=== PATIENT | male | born 1960 | race Caucasian/White ===

== ENCOUNTER 2020-12-23 08:19 | Emergency (ER) | payer MEDICARE ==
[~2020-12-23] VITALS: Ht 182.9 cm; Wt 86.2 kg
[2020-12-23] MEDS ORDERED: HYDROCODON-ACE1 EAC7 PO (10:00)
[2020-12-23 10:10] VITALS: BP 151/88
== END 2020-12-23 10:10 | disposition home or self-care (01) ==
LOC: M.ERS 08:19
DX: S22.32XA Fracture of one rib, left side, initial encounter for closed fracture (principal); F20.9 Schizophrenia, unspecified; Z96.652 Presence of left artificial knee joint; Z96.642 Presence of left artificial hip joint; W08.XXXA Fall from other furniture, initial encounter; Y93.89 Activity, other specified; Y92.89 Other specified places as the place of occurrence of the external cause; Y99.8 Other external cause status